=== PATIENT | male | born 1955 | race African-American/Black ===

== ENCOUNTER 2017-02-22 18:26 | Emergency (ER) | payer OTHER ==
[~2017-02-22] VITALS: Ht 177.8 cm; Wt 91.0 kg
[2017-02-22] MEDS ORDERED: ONDANSETRON HCL 4MG/2ML VIAL IV NR (20:45)
[2017-02-22] MEDS ORDERED: SODIUM CHLORIDE 0.9% 1,000 ML IV NR (20:45)
[2017-02-22 21:06] LABS: BASOPHILS % 0.6 % (0.0-2.0); EOSINOPHILS % 0.4 % (0.0-5.0); HEMATOCRIT. 45.4 % (42.0-52.0); HEMOGLOBIN. 15.3 g/dL (14.0-18.0); LYMPHOCYTES % 19.4 % (20.0-50.0); MEAN CORPUSCULAR HEMOGLOBIN 30.6 pg (28.0-32.0); MEAN CORPUSCULAR VOLUME 90.8 fL (80.0-94.0); MEAN PLATELET VOLUME 8.9 fl (7.4-10.4); MONOCYTES % 8.8 % (2.0-8.0); NEUTROPHILS % 70.8 % (40.0-76.0); PLATELET 242 x1000/uL (130-400); RED CELL DISTRIBUTION WIDTH 13.6 % (11.6-14.6)
[2017-02-22 21:08] LABS: CHLORIDE 99 mEq/L (98-107)
[2017-02-22 21:10] LABS: INR 1.1; PROTHROMBIN TIME 11.5 sec
[2017-02-22 21:15] LABS: CARBON DIOXIDE 24 mEq/L (21-32)
[2017-02-22] MEDS ORDERED: INSULIN REGULAR (HUMULIN R) 300UNITS/3ML IV NR (21:15)
[2017-02-23] MEDS ORDERED: INSULIN REGULAR (HUMULIN R) 300UNITS/3ML IV ONE
[2017-02-23 05:05] VITALS: BP 120/71
== END 2017-02-23 06:13 | disposition home or self-care (01) ==
LOC: ER 19:09
DX: E11.65 Type 2 diabetes mellitus with hyperglycemia (principal); Z79.84 Long term (current) use of oral hypoglycemic drugs; I10 Essential (primary) hypertension; E78.00 Pure hypercholesterolemia, unspecified
CPT/HCPCS: 36415; 80053; 82962; 85025; 85610; 96361; 96374; 96375; 96376; 99285; J1815; J2405; J7030